=== PATIENT | female | born 1995 | race Caucasian/White ===

== ENCOUNTER 2016-10-27 22:32 | Emergency (ER) | payer BC, MEDICAID ==
[~2016-10-27] VITALS: Ht 175.3 cm; Wt 102.3 kg
[~2016-10-27 22:32] MED LIST: MOTRIN 600600 MG/TAB PO; PERCOCET 325 MG1 TA2 PO; PRENATAL1 TA7 PO
[2016-10-27] MEDS ORDERED: LEXAPRO20 MG PO (22:43)
[2016-10-27] MEDS ORDERED: BACTRIM DS 8001 TAB (22:44)
[2016-10-27] MEDS ORDERED: AZO-STANDARD95 MG PO (22:44)
[2016-10-27 22:45] VITALS: BP 131/83; TEMP 98.3
[2016-10-27] MEDS ORDERED: PORTIA-28 30 MC1 TAB PO (22:45)
[2016-10-27 23:47] LABS: PH 5 (5-8); URINE APPEARANCE Hazy; URINE BACTERIA None Seen /hpf; URINE BILIRUBIN Negative (NEGATIVE); URINE BLOOD 3+ (NEGATIVE); URINE COLOR Amber; URINE GLUCOSE Negative (NEGATIVE); URINE KETONE Negative (NEGATIVE); URINE RBC >50 /hpf
[2016-10-28] MEDS ORDERED: PYRIDIUM 100MG100 MG PO (00:54)
[2016-10-28] MEDS ORDERED: NORCO 325 MG-51 TAB PO (00:54)
[2016-10-28 01:15] VITALS: PULSE 72
== END 2016-10-28 01:15 | disposition home or self-care (01) ==
LOC: COL.ER 22:32
PROVIDERS: Physician Assistant
DX: N20.2 Calculus of kidney with calculus of ureter (principal)

== ENCOUNTER 2016-11-10 08:14 | Day surgery (SDC) | payer BC, MEDICAID ==
[~2016-11-10] VITALS: Ht 175.3 cm; Wt 102.4 kg
[~2016-11-10 08:14] MED LIST changes: +AZO-STANDARD95 MG PO; +BACTRIM DS 8001 TAB; +LEXAPRO20 MG PO; +NORCO 325 MG-51 TAB PO; +PORTIA-28 30 MC1 TAB PO; +PYRIDIUM 100MG100 MG PO
[2016-11-10] MEDS ORDERED: PROFERRIN ES12 MG PO (08:58)
[2016-11-10 09:05] VITALS: BP 119/73; PULSE 66; TEMP 97.5
[2016-11-10 10:25] VITALS: BP 109/64; PULSE 75; TEMP 97.6
[2016-11-10 10:40] VITALS: BP 111/66; PULSE 72
[2016-11-10 10:55] VITALS: BP 105/74; PULSE 68
[2016-11-10 11:10] VITALS: BP 117/74; PULSE 80
[2016-11-10] MEDS ORDERED: SENOKOT S 50 MG1 TAB PO (11:26)
== END 2016-11-10 11:50 | disposition home or self-care (01) ==
LOC: SDCO 08:14
DX: Z87.442 Personal history of urinary calculi (principal)
CPT/HCPCS: C1769; J0690; J1100; J1885; J2405; J2704; J3010; J7120; Q9967